=== PATIENT | male | born 1990 | race Caucasian/White ===

== ENCOUNTER 2018-01-25 14:24 | Emergency (ER) | END 2018-01-25 16:11 | disposition home or self-care (01) ==

== ENCOUNTER 2018-11-07 20:45 | Emergency (ER) | payer SELFPAY ==
[~2018-11-07] VITALS: Ht 167.6 cm; Wt 61.7 kg
[~2018-11-07 20:45] MED LIST: CLOT30CR24 TOP; FLUC150T PO
[2018-11-07 20:48] VITALS: Ht 167.6 cm; Wt 61.7 kg
--- NOTE | 2018-11-07 21:13 | ERD ---
ER Documentation Chief Complaint Chief Complaint genital pain x 2 days. denies dysuria HPI This is a 28-year-old male presents emergency department with complaints of penile lesions for about 2 days. Stated that he puts cream in this. States that the lesion is itchy and painful. Stated that he has history of HIV. 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 Sexually active with one partner only, his . is no symptoms. stated that she is taking Truvada for preventative. Denies headache, head injury, loss of consciousness, dizziness, neck pain, neck stiffness, throat pain, difficulty swallowing, difficulty breathing lying flat, shoulder pain, chest pain, back pain, abdominal pain, nausea, vomiting, constipation, diarrhea, urinary symptoms, loss of bowel and bladder control, trauma, injury, falls, difficulty walking due to pain, numbness or tingling sensation, calf pain, recent travel, recent major surgery in the last 3 weeks, c julián pain, recent long travel, recent exposure to any illness, recent antibiotic use in the last 3 months, fever, chills, seizures. Past medical history: Born with HIV. Surgical history: Denies. Social: Denies smoking, use of alcoholic beverages, use of illegal drugs. ROS All systems reviewed and are negative except as per history of present illness. Medications Home Meds Active Scripts Diphenhydramine Hcl* (Benadryl*) 25 Mg Cap, 25 MG PO Q6 PRN for ITCHING/RASH, #30 TAB Prov:PASILABANKLAR F 11/07/18 Ibuprofen* (Motrin*) 600 Mg Tab, 600 MG PO Q6H PRN for PAIN AND OR ELEVATED TEMP, #30 TAB Prov:PASILABAN,KLAR F 11/07/18 Clotrimazole* (Clotrimazole* AF) 1% - 30 Gm Cream.gm., 1 APPLIC TOP BID for 7 Days, TUB Prov:PASILABAN,KLAR F 11/07/18 Clotrimazole* (Clotrimazole* AF) 1% - 30 Gm Cream.gm., 1 APPLIC TOP BID for 10 Days, TUB Prov:YOSVANY GANDHI MD 01/25/18 Fluconazole* (Diflucan*) 150 Mg Tablet, 150 MG PO ONCE, #1 TAB Prov:YOSVANY GANDHI MD 01/25/18 Allergies Allergies: Coded Allergies: No Known Drug Allergies (Verified Allergy, Unknown, 11/07/18) PMhx/Soc History of Surgery: Yes (L EAR) Anesthesia Reaction: No Hx Neurological Disorder: No Hx Respiratory Disorders: No Hx Cardiac Disorders: No Hx Psychiatric Problems: No Hx Miscellaneous Medical Probl: Yes (HIV ) Hx Alcohol Use: No Hx Substance Use: No Hx Tobacco Use: No Smoking Status: Never smoker Physical Exam Vitals Vital Signs Date Temp Pulse Resp B/P (MAP) Pulse Ox O2 O2 Flow FiO2 Time Delivery Rate 11/07/18 98.4 66 18 135/70 99 Room Air 23:49 (91) 11/07/18 98.4 64 18 140/69 97 20:48 (92) Physical Exam Const: No acute distress Head: Atraumatic Eyes: Normal Conjunctiva ENT: Normal External Ears, Nose and Mouth. Neck: Full range of motion. No meningismus. Resp: Clear to auscultation bilaterally Cardio: Regular rate and rhythm, no murmurs Abd: Soft, non tender, non distended. Normal bowel sounds. Negative Dumas s ign but negative Aron sign (heel jar test). Negative psoas sign. Negative Rovsing sign. Bilateral inguinal areas no swelling/tenderness/discoloration. : Uncircumcised. Lesions that is reddish in color noted. Low suspicion for herpes. Bilateral testicular/scrotal areas no swelling/tenderness/discoloration. Skin: No petechiae or rashes. Please see . Color appears normal for ethnicity. No skin tenting. No signs of severe dehydration. Back: No midline or flank tenderness. No CVA tenderness. Ext: No cyanosis, or edema Neur: Awake and alert. No neurological deficit. Psych: Normal Mood and Affect Results 24 hrs Laboratory Tests Test 11/07/18 22:17 Urine Color YELLOW Urine Clarity CLEAR Urine pH 8.0 Urine Specific [place] 1.004 Urine Ketones NEGATIVE mg/dL Urine Nitrite NEGATIVE mg/dL Urine Bilirubin NEGATIVE mg/dL Urine Urobilinogen NEGATIVE mg/dL Urine Leukocyte Esterase NEGATIVE Precious/ul Urine Hemoglobin NEGATIVE mg/dL Urine Glucose NEGATIVE mg/dL Urine Total Protein NEGATIVE mg/dl Current Medications Medications Dose Sig/Abhishek Start Time Status Last (Trade) Ordered Route PRN Stop Time Admin Dose Reason Admin Fluconazole 150 mg ONCE ONCE 11/07/18 DC 11/07/18 (Diflucan) PO 22:00 21:47 11/07/18 22:01 Procedures/MDM Diagnostic tests: Urinalysis: Reviewed. Culture urine: Sent. Gonorrhea and Chlamydia: Sent. Treatment: Diflucan. Re-evaluation: Denies abdominal pain, suprapubic pain, penile pain, scrotal pain. Stated that he feels much better this time and that he is ready to go home. Stated that he is comfortable to go home. Differential diagnosis I have low suspicion for sepsis, deep space infection, penile fracture, testicular torsion, epididymitis, inguinal hernia, inguinal hernia with strangulation/incarceration, genital herpes. Final diagnosis: Balanitis. Prescription: Lotrimin. Motrin. Benadryl. Follow-up with PCP in the next 24-48 hours. Come back here in the emergency department for any new symptoms or any worsening symptoms. All questions and concerns were answered. Patient and family members verbalized understanding and agreed with plan of care. Hemodynamically stable on discharge. Departure Diagnosis: Primary Impression: Balanitis Condition: Stable Additional Instructions: Follow-up with PCP in the next 24-48 hours. Come back here in the emergency department for any new symptoms or any worsening symptoms. TRISTAN KWOK Nov 07, 2018 21:13
[2018-11-07] MEDS ORDERED: IBUP-1542 PO (21:37)
[2018-11-07] MEDS ORDERED: CLOT30CR24 TOP (21:37)
[2018-11-07] MEDS ORDERED: BEN25 PO (21:37)
[2018-11-07] MEDS ORDERED: FLUCONAZOLE 150 MG TAB PO ONE (22:00)
[2018-11-07 23:49] VITALS: BP 135/70; PULSE 66; RESP 18
== END 2018-11-07 23:50 | disposition home or self-care (01) ==
LOC: FTE 20:45
DX: N48.1 Balanitis (principal)
CPT/HCPCS: 81003; 87086; 87591; 99283

== ENCOUNTER 2018-12-19 23:48 | Emergency (ER) | payer OTHER ==
[~2018-12-19] VITALS: Ht 167.6 cm; Wt 62.2 kg
[~2018-12-19 23:48] MED LIST changes: +BEN25 PO; +IBUP-1542 PO
[2018-12-20] VITALS: Ht 167.6 cm; Wt 62.2 kg
[2018-12-20] MEDS ORDERED: IBUPROFEN 800 MG TAB PO ONE (00:30)
--- NOTE | 2018-12-20 00:57 | ERD ---
ER Documentation Chief Complaint Chief Complaint insect bite left arm ; started getting weak, CP HPI Patient is a 28-year-old male with HIV who presents with chest pain. He said he started with a spider bite 2 days ago on his arm which yesterday was red and swollen. Today was much better. He did not see the spider bite him. After this he started with the chest pain. He tried ibuprofen. Yesterday he had subjective fever but did not take his temperature. He does have a primary doctor. ROS All systems reviewed and are negative except as per history of present illness. Medications Home Meds Active Scripts Ibuprofen* (Motrin*) 600 Mg Tab, 600 MG PO Q6H PRN for PAIN AND OR ELEVATED TEMP, #30 TAB Prov:NAEL MACHUCA MD 12/20/18 Diphenhydramine Hcl* (Benadryl*) 25 Mg Cap, 25 MG PO Q6 PRN for ITCHING/RASH, #30 TAB Prov:PASILABANTRISTAN F 11/07/18 Ibuprofen* (Motrin*) 600 Mg Tab, 600 MG PO Q6H PRN for PAIN AND OR ELEVATED TEMP, #30 TAB Prov:PASILABANTRISTAN F 11/07/18 Clotrimazole* (Clotrimazole* AF) 1% - 30 Gm Cream.gm., 1 APPLIC TOP BID for 7 Days, TUB Prov:TRISTAN KWOK F 11/07/18 Clotrimazole* (Clotrimazole* AF) 1% - 30 Gm Cream.gm., 1 APPLIC TOP BID for 10 Days, TUB Prov:YOSVANY GANDHI MD 01/25/18 Fluconazole* (Diflucan*) 150 Mg Tablet, 150 MG PO ONCE, #1 TAB Prov:YOSVANY GANDHI MD 01/25/18 Allergies Allergies: Coded Allergies: No Known Drug Allergies (Verified Allergy, Unknown, 11/07/18) PMhx/Soc History of Surgery: Yes (L EAR) Anesthesia Reaction: No Hx Neurological Disorder: No Hx Respiratory Disorders: No Hx Cardiac Disorders: No Hx Psychiatric Problems: No Hx Miscellaneous Medical Probl: Yes (HIV ) Hx Alcohol Use: Yes (socially) Hx Substance Use: No Hx Tobacco Use: Yes (quit) Smoking Status: Former smoker FmHx Family History: diabetes Physical Exam Vitals Vital Signs Date Temp Pulse Resp B/P (MAP) Pulse Ox O2 O2 Flow FiO2 Time Delivery Rate 12/20/18 97.6 57 16 115/62 99 Room Air 01:20 (79) 12/20/18 97.1 60 16 132/80 99 00:00 (97) Physical Exam Const: No acute distress Head: Atraumatic Eyes: Normal Conjunctiva ENT: Normal External Ears, Nose and Mouth. Neck: Full range of motion. No meningismus. Resp: Clear to auscultation bilaterally Cardio: Regular rate and rhythm, no murmurs Abd: Soft, non tender, non distended. Normal bowel sounds Skin: Mild erythema to the left arm with small bite shine without signs of cellulitis or abscess Back: No midline or flank tenderness Ext: No cyanosis, or edema Neur: Awake and alert Psych: Normal Mood and Affect Results 24 hrs Current Medications Medications Dose Sig/Abhishek Start Time Status Last (Trade) Ordered Route PRN Stop Time Admin Dose Reason Admin Ibuprofen 800 mg ONCE ONCE 12/20/18 DC 12/20/18 (Motrin) PO 00:30 00:46 12/20/18 00:31 Procedures/MDM EKG read by me: Rate/Rhythm: Sinus bradycardia rate of 55 Intervals: Normal Impression: Bradycardia without ischemia Chest X-ray 1V Interpreted by me: Soft Tissue: No acute abnormalities Bones: No acute abnormalities Mediastinum/Cardiac Silhouette/Lungs: No acute abnormalities Patient is a 28-year-old male who presents with chest pain. EKG and chest x-ray were negative. I doubt acute coronary syndrome, pneumonia, pneumothorax, pulmonary embolism, or aortic dissection. The patient will be discharged at this time. I doubt serious cellulitis or abscess. The patient can use ibuprofen for symptomatic relief. Departure Diagnosis: Primary Impression: Spider bite Encounter type: initial encounter Injury intent: undetermined intent Qualified Codes: T63.304A - Toxic effect of unspecified spider venom, undetermined, initial encounter Additional Impression: Chest pain Chest pain type: unspecified Qualified Codes: R07.9 - Chest pain, unspecified Condition: Fair Patient Instructions: Chest Pain, Uncertain Cause Referrals: Your doctor Additional Instructions: Call your primary care doctor TOMORROW for an appointment during the next 1-2 days.See the doctor sooner or return here if your condition worsens before your appointment time. NAEL MACHUCA MD Dec 20, 2018 00:57
[2018-12-20 01:20] VITALS: BP 115/62; PULSE 57; RESP 16
== END 2018-12-20 01:25 | disposition home or self-care (01) ==
LOC: E/R 23:48
DX: T63.304A Toxic effect of unspecified spider venom, undetermined, initial encounter (principal); R07.9 Chest pain, unspecified; R40.2122 Coma scale, eyes open, to pain, at arrival to emergency department; R40.2362 Coma scale, best motor response, obeys commands, at arrival to emergency department; R40.2252 Coma scale, best verbal response, oriented, at arrival to emergency department; Z87.891 Personal history of nicotine dependence; Z21 Asymptomatic human immunodeficiency virus [HIV] infection status
CPT/HCPCS: 71045; Z7502; Z7610; 93005